=== PATIENT | male | born 1995 | race Caucasian/White ===

== ENCOUNTER 2017-01-10 15:28 | Emergency (ER) | payer SELFPAY ==
[~2017-01-10] VITALS: Ht 185.4 cm; Wt 95.5 kg
[~2017-01-10 15:28] MED LIST: ALBU8I INH; TRAM50 PO
[2017-01-10 15:31] VITALS: BP 139/87; PULSE 102; RESP 20; TEMP 97.8; O2SAT 98
--- NOTE | 2017-01-10 15:55 | PD ---
Physical Exam Date Seen by Provider: Jan 10, 2017 Time Seen by Provider: 15:53 Narrative 21 year old male presents to the emergency department for evaluation of lump to his left axilla that started 4 days ago. He has had associated chills. No drainage. Vital signs reviewed. Patient awaiting bed placement. Data Data Last Documented VS Vital Signs Date Time Temp Pulse Resp B/P Pulse Ox O2 Delivery O2 Flow Rate FiO2 01/10/17 15:31 97.8 102 20 139/87 98 Room Air [facility] Supervised Visit with JESICA: Sangeetha Evans Jan 10, 2017 15:55
--- NOTE | 2017-01-10 16:28 | PD ---
HPI . left axilla abscess Chief Complaint: Lump, Cyst, Hernia Time Seen by Provider: 16:28 Travel History International Travel<30 days: No Contact w/Intl Traveler<30days: No Traveled to known affect area: No History of Present Illness HPI 21-year-old male here with complaints of a left axilla abscess that has been present for the past 5 days. He initially thought it was due to a change of his deodorant and decided to stop using it. He had stopped washing the area and decided to use some soap to wash yesterday and tells me that he woke up this morning it was significantly worsened. He is complaining of pain to the left axilla. He admits to some intermittent chills, but denies any fever. He has no other complaints. PFSH Past Medical History Medical History: Denies Significant Hx Social History Alcohol Use: No Tobacco Use: No Substance Use: No Allergies-Medications (Allergen,Severity, Reaction): Coded Allergies: No Known Allergies (Verified , 04/19/15) Reported Meds & Prescriptions Reported Meds & Active Scripts Active Ibuprofen 800 Mg Tab 800 Mg PO TID Bactrim DS (Sulfamethoxazole-Trimethoprim) 800-160 Mg Tab 1 Tab PO BID Review of Systems General / Constitutional: No: Fever Eyes: No: Visual changes HENT: No: Headaches Cardiovascular: No: Chest Pain or Discomfort Respiratory: No: Shortness of Breath Gastrointestinal: No: Abdominal Pain Genitourinary: No: Dysuria Musculoskeletal: No: Pain Skin: Positive Other (axilla abscess), No Rash Neurologic: No: Weakness Psychiatric: No: Depression Endocrine: No: Polydipsia Hematologic/Lymphatic: No: Easy Bruising Physical Exam Narrative GENERAL: AAO x 3, no acute distress, Well-nourished, well-developed patient. SKIN: Warm and dry. No visible rashes or bruising. There is an indurated area in the left axilla which measures about 3.4 cm in diameter. It is fluctuant but there is no pointing or drainage. There is a zone of inflammation extending into the start of the humerus but no lymphangitis. HEAD: Normocephalic and atraumatic. EYES: No scleral icterus. No injection or drainage. ENT: No nasal drainage noted. Mucous membranes pink. Airway patent. NECK: Supple, trachea midline. No JVD. CARDIOVASCULAR: Regular rate and rhythm without murmurs, gallops, or rubs. RESPIRATORY: Breath sounds equal bilaterally. No accessory muscle use. No rhonchi or rales. GASTROINTESTINAL: Abdomen soft, non-tender, nondistended. EXTREMITIES: No cyanosis or edema. BACK: Nontender without obvious deformity. No CVA tenderness. PSYCH: AAO x 3, normal affect. Data Data Last Documented VS Vital Signs Date Time Temp Pulse Resp B/P Pulse Ox O2 Delivery O2 Flow Rate FiO2 01/10/17 15:31 97.8 102 20 139/87 98 Room Air Orders Wound Culture And Gram Stain (01/10/17 16:29) Lidocaine 1% Inj (50 Ml) (Xylocaine 1% I (01/10/17 16:30) Lidocaine 1% Inj (Xylocaine 1% Inj) (01/10/17 16:32) MDM Medical Decision Making Medical Screen Exam Complete: Yes Emergency Medical Condition: Yes Medical Record Reviewed: Yes Differential Diagnosis left axilla abscess, cellulitis, less likely sepsis Narrative Course 21-year-old male here with complaints of a left axilla abscess that has been present for the past 5 days. He initially thought it was due to a change of his deodorant and decided to stop using it. He had stopped washing the area and decided to use some soap to wash yesterday and tells me that he woke up this morning it was significantly worsened. He is complaining of pain to the left axilla. He admits to some intermittent chills, but denies any fever. He has no other complaints. Patient seen and examined. He does have an abscess to the left axilla that needs to be lanced. Patient consented to incision and drainage. Cultures were taken. Patient tolerated without incident. Will prescribe a course of Bactrim as patient does not have insurance and cannot afford clindamycin. He will return in 48 hours for recheck of the area, if Bactrim does not appear to be working, we will have to change antibiotics and he is aware of this. 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 I provided him with a note for work. We discussed worsening infection and he will return to the emergency room if any of these signs appear. Patient verbalized understanding of instructions, questions were answered, and thanked me for their care. I advised them if their condition worsens, please return to the nearest emergency room for further care. Procedures Procedure Narrative After the risks and benefits were discussed the following procedure was performed: INCISION AND DRAINAGE OF ABSCESS: The area was prepped and was sterilely draped. A subcutaneous wheal of 1% % Xylocaine with a total number 6 mL was used to anesthetize the area. The area was properly anesthetized. A number 11 scalpel was used to make a 1-cm incision across the area of the abscess. Cultures were obtained. The abscess was drained an irrigated with normal saline. Quarter inch iodoform packing was placed in the wound. Sterile dressing applied. Patient advised to have packing removed in two days. Diagnosis Primary Impression: Abscess of axilla, left Patient Instructions: Abscess Incision and Drainage (DC), Acute Wound Care (ED) , General Instructions Departure Forms: Tests/Procedures, Work Release Enter return to work date: Jan 12, 2017 Special Instructions: needs to be seen in ed in 48 hours for recheck Additional Instructions: Rest, hydrate. Do not change the dressing unless it becomes wet or soiled until wound recheck in 48 hours. You may bathe normally. Do not submerge the wound. Try not to remove the packing. Take the antibiotics as they are prescribed, even if your symptoms resolve during the course of treatment. Utilize [id number] pain medications, as described on the label, as needed. Return to the ED in 48 hours for packing removal and wound recheck. Follow-up with your primary care provider in next week. Return to the ED for any urgent or emergent medical condition. [place] for worsening signs of infection which include increased redness, increased warmth, purulent drainage, increased swelling or streaking. If any of these develop, please return to the nearest emergency department. Scripts Ibuprofen 800 Mg [id number] Mg PO TID #21 TAB Prov:Gem Cox MD 01/10/17 Sulfamethoxazole-Trimethoprim (Bactrim DS)800-160 Mg Tab1 Tab PO BID #20 TAB Prov:Gem Cox MD 01/10/17 Disposition: 01 DISCHARGE HOME Condition: Stable Betty Albarado Jan 10, 2017 16:28
[2017-01-10] MEDS ORDERED: LIDOCAINE HCL 1% 50 ML VIAL INFIL ONE (16:30)
[2017-01-10] MEDS ORDERED: LIDOCAINE HCL 1% 30 ML VIAL ONE (16:32)
[2017-01-10] MEDS ORDERED: IBUP800T23 PO (16:58)
[2017-01-10] MEDS ORDERED: BACT800T5 PO (16:58)
== END 2017-01-10 17:24 | disposition home or self-care (01) ==
LOC: NEPK 15:28
DX: L02.412 Cutaneous abscess of left axilla (principal); B95.62 Methicillin resistant Staphylococcus aureus infection as the cause of diseases classified elsewhere
CPT/HCPCS: 10061; 86403; 87070; 87186